=== PATIENT | female | born 1980 | race Caucasian/White ===

== ENCOUNTER 2019-05-08 07:40 | Emergency (ER) | payer OTHER ==
[2019-05-08 08:07] LABS: #Basophils 0.1 thou/uL (0.0-0.2); #Eosinphils 0.3 thou/uL (0.0-0.7); #Lymphocytes 2.9 thou/uL (1.20-3.40); #Monocytes 0.8 thou/uL (0.11-0.59); #Neutrophils 6.2 thou/uL (1.40-6.50); %Basophils 0.7 % (0.0-1.0); %Eosinophils 2.6 % (0.0-10.0); %Monocytes 8.1 % (0.0-10.0); %Neutrophils 60.6 % (42.0-75.0); Hemoglobin 14.1 g/dL (12.0-16.0); Mean Corpuscular HGB CONC 34.6 g/dL (32.0-36.0); Mean Corpuscular Hemoglobin 30.8 pg (27.0-31.0); Mean Platelet Volume 6.3 fL (7.4-10.4); Platelet Count 383 thou/uL (130-400); RBC Distribution Width 12.4 % (11.5-14.5); Red Blood Cell (RBC) Count 4.57 mill/uL (4.20-5.40); White Blood Cell (WBC) Count 10.2 thou/uL (4.8-10.8)
[2019-05-08 08:26] LABS: ALT (SGPT) 23 U/L (8-55); AST (SGOT) 17 U/L (5-34); Albumin 3.9 g/dL (3.5-5.0); Alkaline Phosphatase 56 U/L (40-150); Anion Gap 10 mmol/L (10-20); BUN (Urea Nitrogen) 10 mg/dL (7.0-18.7); Bilirubin, Total 0.4 mg/dL (0.2-1.2); Calc. Creatinine Clearance 0 mL/min (70-130); Calcium 9.1 mg/dL (7.8-10.44); Carbon Dioxide 28 mmol/L (22-29); Chloride 103 mmol/L (98-107); Estimated GFR-MDRD 83; Globulin 2.5 g/dL (2.4-3.5); Glucose 158 mg/dL (70-105); Lipase 37 U/L (8-78); Potassium 3.7 mmol/L (3.5-5.1); Protein, Total 6.4 g/dL (6.0-8.3); Sodium 137 mmol/L (136-145)
[2019-05-08 09:09] LABS: Bilirubin Negative (Negative); Blood, Urine Negative (Negative); Clarity Clear (Clear); Glucose, Urine (Dipstick) Normal (Negative); Leukocyte Negative Leu/uL (Negative); Nitrite Negative (Negative); Protein, Urine (Dipstick) 20 mg/dL (Neg-Trace); Urobilinogen Normal mg/dL (Less than 2)
[2019-05-08 09:14] LABS: Pregnancy Test - Urine (BHCG) Negative (Negative); Pregu Control Background? CLEAR/WHITE (CLR/WHITE); Pregu Control Bar Appear? YES (CONTROL BAR); Specific Gravity 1.023 (1.002-1.036)
--- NOTE | 2019-05-08 09:15 | CT ---
CT of the abdomen and pelvis: 05/08/2019 COMPARISON: None HISTORY: Right-sided abdominal pain TECHNIQUE: Axial CT imaging at 5 mm intervals from lung bases through pubic symphysis with IV contras t. Coronal and sagittal reformatted imaging obtained. FINDINGS: The visualized lung bases are unremarkable. No free intraperitoneal air or fluid seen. The hepatic parenchyma is diffusely hypodense suggesting hepatic steatosis. The gallbladder, spleen, pancreas, adrenal glands, and kidneys demonstrate no acute findings. Evaluation of the bowel is limited without oral contrast media. The appendix is unremarkable. No evidence for bowel obstruction. No discrete focal area of bowel inflammatory change. The colon is underdistended and not well assessed on this examination. Review of the vascular structures demonstrate no acute findings. There is a retroaortic left renal ve in. No lymphadenopathy is noted within the abdomen or pelvis. Review of the osseous structures demonstrates no discrete worrisome lytic or blastic lesion. There is disc space narrowing and vacuum disc formation at the lumbosacral junction. Posterior osteop hyte causes significant central canal stenosis and facet hypertrophy causes neural foraminal stenosis, particularly on the left. IMPRESSION: No evidence for free intraperitoneal air, appendicitis, or small bowel obstruction. Incid ental findings as detailed above.
--- NOTE | 2019-05-08 09:35 | ULT ---
Pelvic sonogram transabdominal imaging with duplex evaluation HISTORY: Pelvic pain. FINDINGS: Urinary bladder is incompletely distended. Uterus has a homogeneous echotexture and measure s up to 11.2 cm. Endometrium is 0.2 cm. No free fluid. Right ovary is 3.2 cm and left is 2.8 cm. Tiny echogenic focus associated with the left kidney likely represents a small dystrophic calcification. Good color and spectral Doppler flow within each ovary. IMPRESSION: No significant abnormalities are demonstrated.
== END 2019-05-08 09:58 | disposition home or self-care (01) ==
LOC: ERS 07:40
DX: R10.9 Unspecified abdominal pain (principal); R10.813 Right lower quadrant abdominal tenderness; E11.9 Type 2 diabetes mellitus without complications; I10 Essential (primary) hypertension
CPT/HCPCS: 36415; 74177; 76856; 80053; 81003; 81025; 83690; 85025; 93976